=== PATIENT | female | born 1955 | race Caucasian/White ===

== ENCOUNTER 2017-07-23 19:51 | Emergency (ER) | payer MEDICARE, OTHER ==
[~2017-07-23] VITALS: Ht 160 cm; Wt 65.8 kg
[~2017-07-23 19:51] MED LIST: ST. JOHN'S WORT; ST. JOHN'S WORT1 GM
[2017-07-23 20:10] LABS: BASOPHILS ABSOLUTE AUTO 0.02 K/mm3 (0.00-0.23); BASOPHILS PERCENT AUTO 0 % (0-2); EOSINOPHILS ABSOLUTE AUTO 0.34 K/mm3 (0.00-0.68); EOSINOPHILS PERCENT AUTO 3 % (0-6); Hematocrit 35.3 % (33.0-51.0); Hemoglobin 11.5 g/dL (11.5-16.0); IMMATURE GRAN ABSOLUTE AUTO 0.03 K/mm3 (0.00-0.10); IMMATURE GRAN PERCENT AUTO 0 % (0-1); LYMPHOCYTES ABSOLUTE AUTO 2.02 K/mm3 (0.84-5.20); LYMPHOCYTES PERCENT AUTO 20 % (21-46); MONOCYTES ABSOLUTE AUTO 0.76 K/mm3 (0.16-1.47); MONOCYTES PERCENT AUTO 7 % (4-13); Mean Corpuscular HGB Conc 32.6 g/dL (31.5-36.5); Mean Corpuscular Volume 89 fL (80-100); Mean Platelet Volume 9.5 fL (9.1-12.4); NEUTROPHILS ABSOLUTE AUTO 7.11 K/mm3 (1.96-9.15); NEUTROPHILS PERCENT AUTO 69 % (41-73); Platelet Count 339 K/mm3 (150-400); RDW Coefficient Variation 13.8 % (11.7-14.2); RDW Standard Deviation 45.3 fL (35.1-46.3); Red Blood Cell Count 3.96 M/mm3 (3.80-5.20); White Blood Cell Count 10.28 K/mm3 (4.00-11.30)
[2017-07-23 20:21] LABS: International Normalized Ratio 1.08; Prothrombin Time Results 11.3 Sec (9.7-11.5)
[2017-07-23 20:31] LABS: Alanine Aminotransfer (ALT/SGP 26 U/L (12-78); Albumin, Blood 2.5 g/dL (3.4-5.0); Albumin/Globulin Ratio 0.5 (0.8-1.8); Alk Phos 96 U/L (50-136); Anion Gap 6 mmol/L (6-16); Aspartate Aminotrans (AST/SGOT 28 U/L (12-37); Bilirubin, Total 0.3 mg/dL (0.1-1.0); Blood Urea Nitrogen 13 mg/dL (8-24); Bun/Creatinine Ratio 22.6 (12.0-20.0); CO2, Blood 27 mmol/L (21-32); Calcium, Blood 9.1 mg/dL (8.5-10.1); Chloride, Blood 104 mmol/L (98-108); Creatinine, Blood 0.58 mg/dL (0.40-1.00); Ethanol (Alcohol), Blood, Med <3 mg/dL; Globulin, Blood 5.2 g/dL (2.2-4.0); Glomerular Filtration Rate >60 (60-); Glucose, Blood 126 mg/dL (70-99); Sodium, Blood 137 mmol/L (136-145); Total Protein, Blood 7.7 g/dL (6.4-8.2)
[2017-07-23] MEDS ORDERED: SENN187 PO (20:36)
[2017-07-23] MEDS ORDERED: ALBU90OI INH (20:36)
[2017-07-23] MEDS ORDERED: ATOR10 PO (20:37)
[2017-07-23] MEDS ORDERED: OXYC5 PO (20:37)
[2017-07-23] MEDS ORDERED: Milk Of Ma400 MG/5 M PO (20:37)
[2017-07-23] MEDS ORDERED: CENTRAVITES 501 EACH PO (20:38)
[2017-07-23] MEDS ORDERED: Lisinopril2.5 MG PO (20:38)
[2017-07-23] MEDS ORDERED: METF500 PO (20:38)
[2017-07-23 21:08] LABS: Source, Urine Clean Catch
[2017-07-23 21:10] LABS: Bilirubin, Urine Neg (Neg); Blood, Urine 1+ (Neg); Glucose Qualitative, Urine Neg (Neg); Ketones, Urine 1+ (Neg); Leukocyte Esterase, Urine Neg (Neg); Nitrite, Urine Neg (Neg); Protein, Urine Neg (Neg); Specific Gravity, Urine 1.025 (1.003-1.022); Urobilinogen, Urine NORM (Normal)
[2017-07-23 21:23] LABS: Appearance, Urine Clear (Clear); Color, Urine Yellow (P-Yellow); U Amphetamine Screen Not Detected; U Barbituate Screen Not Detected; U Benzodiazapine Screen Not Detected; U Cannabinoids Screen DETECTED; U Cocaine Screen Not Detected; U Methadone Screen Not Detected; U Methamphetamine Screen DETECTED; U Opiates Screen Not Detected; U Phencyclidine Screen Not Detected
[2017-07-23 21:24] LABS: U Buprenorphine Screen Not Detected; U Oxycodone Screen DETECTED; U Propoxyphene Screen Not Detected
[2017-07-23 21:25] LABS: Bacteria Few /hpf; Red Blood Cells, Urine 0-2 /hpf (0-2); Squamous Epithelial Cells Mod /hpf (Few); White Blood Cells, Urine 0-2 /hpf (0-5)
== END 2017-07-24 00:11 | disposition short-term general hospital (02) ==
LOC: ER 19:51
PROVIDERS: Emergency Medicine
DX: I63.9 Cerebral infarction, unspecified (principal); R47.01 Aphasia; R29.810 Facial weakness; R73.03 Prediabetes; Z86.19 Personal history of other infectious and parasitic diseases; Z90.710 Acquired absence of both cervix and uterus; Z87.891 Personal history of nicotine dependence; Z79.899 Other long term (current) drug therapy; Z79.84 Long term (current) use of oral hypoglycemic drugs
CPT/HCPCS: 36415; 51702; 70450; 70496; 70498; 71020; 80053; 81001; 82947; 85025; 85610; 85730; 93005; 93010; 99285; G0480; Q9967

== ENCOUNTER 2018-09-23 08:48 | Inpatient (IN) | payer MEDICARE, OTHER ==
[~2018-09-23] VITALS: Ht 157.5 cm; Wt 67.4 kg
[~2018-09-23 08:48] MED LIST changes: +ALBU90OI INH; +ATOR40TA PO; +CENTRAVITES 501 EACH PO; +Lisinopril2.5 MG PO; +METF500 PO; +Milk Of Ma400 MG/5 M PO; +OXYC5 PO; +SENN187 PO
[2018-09-23 09:10] LABS: Calcium, Ionized (POC) 1.02 mmol/L (1.10-1.46); Chloride (POC) 106 mmol/L (98-108); Creatinine (POC) 0.6 mg/dL (0.6-1.0); Glucose (ISTAT POC) 156 mg/dL (70-99); Potassium (POC) 4.5 mmol/L (3.5-5.5); Sodium (POC) 139 mmol/L (135-148); Total CO2 (POC) 21 mmol/L (21-32)
[2018-09-23 09:28] LABS: BASOPHILS ABSOLUTE AUTO 0.03 K/mm3 (0.00-0.23); BASOPHILS PERCENT AUTO 0 % (0-2); EOSINOPHILS ABSOLUTE AUTO 0.04 K/mm3 (0.00-0.68); EOSINOPHILS PERCENT AUTO 0 % (0-6); Hematocrit 45.9 % (33.0-51.0); Hemoglobin 14.9 g/dL (11.5-16.0); IMMATURE GRAN ABSOLUTE AUTO 0.04 K/mm3 (0.00-0.10); IMMATURE GRAN PERCENT AUTO 0 % (0-1); LYMPHOCYTES ABSOLUTE AUTO 2.39 K/mm3 (0.84-5.20); LYMPHOCYTES PERCENT AUTO 19 % (21-46); MONOCYTES ABSOLUTE AUTO 0.69 K/mm3 (0.16-1.47); MONOCYTES PERCENT AUTO 5 % (4-13); Mean Corpuscular HGB 30.6 pg (26.0-34.0); Mean Corpuscular HGB Conc 32.5 g/dL (31.5-36.5); Mean Corpuscular Volume 94 fL (80-100); Mean Platelet Volume 9.1 fL (9.1-12.4); NEUTROPHILS ABSOLUTE AUTO 9.72 K/mm3 (1.96-9.15); NEUTROPHILS PERCENT AUTO 75 % (41-73); Platelet Count 262 K/mm3 (150-400); RDW Standard Deviation 48.1 fL (35.1-46.3); Red Blood Cell Count 4.87 M/mm3 (3.80-5.20); White Blood Cell Count 12.91 K/mm3 (4.00-11.30)
[2018-09-23 09:52] LABS: International Normalized Ratio 1.03; Prothrombin Time Results 10.9 Sec (9.7-11.5)
[2018-09-23 09:55] LABS: Alanine Aminotransfer (ALT/SGP 36 U/L (12-78); Albumin/Globulin Ratio 0.7 (0.8-1.8); Alk Phos 114 U/L (50-136); Anion Gap 12 mmol/L (6-16); Aspartate Aminotrans (AST/SGOT 29 U/L (12-37); Bilirubin, Total 0.5 mg/dL (0.1-1.0); Blood Urea Nitrogen 13 mg/dL (8-24); Bun/Creatinine Ratio 19.4 (12.0-20.0); CO2, Blood 22 mmol/L (21-32); Calcium, Blood 9.7 mg/dL (8.5-10.1); Chloride, Blood 104 mmol/L (98-108); Creatinine, Blood 0.67 mg/dL (0.40-1.00); Globulin, Blood 5.4 g/dL (2.2-4.0); Glomerular Filtration Rate >60 (60-); Glucose, Blood 147 mg/dL (70-99); Potassium, Blood 4.5 mmol/L (3.5-5.5); Sodium, Blood 138 mmol/L (136-145); Total Protein, Blood 9.4 g/dL (6.4-8.2)
[2018-09-23] MEDS ORDERED: GABA100 PO (10:43)
[2018-09-23] MEDS ORDERED: ASPI81CH PO (10:44)
[2018-09-23] MEDS ORDERED: ESCI10 PO (10:44)
[2018-09-23] MEDS ORDERED: Advair Hfa 230-12 GM INH (10:44)
[2018-09-23] MEDS ORDERED: CLOP75 PO (10:45)
[2018-09-23] MEDS ORDERED: FOLI1 PO (12:01)
[2018-09-23] MEDS ORDERED: FLUT1DIS5 INH (12:02)
--- NOTE | 2018-09-23 18:45 | NUR ---
Initial Visit: Consult for Palliative Care received for advanced care planning for patient with cancer. Pt is looking around the room, she is non verbal. No s/s of distress. Reviewed with pt's granddaughter and sister. Granddaughter states that prior level of functioning was good: Pt was able to even climb the stairs with assistance until about a week to two weeks ago when the pt got considerably weaker. Granddaughter and sister are trying to make decisions, but before they do, they would like to talk to Dr. Brown. Booklets, Hard Choices for [place] [facility] and Considering Comfort Care given. They appear to be searching for clear and decisive answers to their questions. Plans are made to follow up with the family after they have had their discussion with Dr. Brown.
--- NOTE | 2018-09-23 19:24 | NUR ---
SHIFT SUMMARY NEW ADMIT FROM ED THIS AFTERNOON. PATIENT DENIES PAIN AND SHORTNESS OF BREATH. PATIENT MEDICATED X 1 FOR VOMITING. PALLIATIVE CARE SPOKE WITH FAMILY. CALUDIA YOUNG IS POA. FAMILY INFORMED IN ED THAT PER CT SCAN PATIENT HAS SEVERAL LESIONS THAT ARE LIKLEY METASTASIZED. CONSULT CALLED TO DR. ARNOLD ANSWERING SERVICE. REPORT GIVEN TO GALDINO MARTINEZ.
--- NOTE | 2018-09-24 03:56 | NUR ---
SHIFT SUMMARY PT ADMITTED FOR SEIZURE. FULL CODE. ADA DIET. SCDS. CBG AT AND HS. dR. Hernandez COMSULT CALLED DUE TO HISTORY OF LUNG CANCER WITH CORONER TRANSPORT TECHNICIAN METS. LOVENOX. HX OF CVA WITH R HEMIPLEGIA NOTED TO HAVE OCCURRED IN JUNE. RAUDEL TO R HAND. THE PT PRESENTED TO THE ED AFTER THE PTS GRANDDAUGHTER STATED THAT THE PT HAD TONIC-CLONIC SEIZURE ACTIVITY. THE PTS SISTER IS POA AND THE PRIMARY CARE PROVIDER BUT WAS ON A PLACE FROM [place] AT THE TIME OF TRANSPORT TO THE ED AND UNABLE TO BE CONTACTED. THE PT HAS A HISTORY OF LUNG CANCER FROM MAY OF 2017 FOR WHICH SHE UNDERWENT A LOBECTOMY. HOWEVER, IT APPEARS THAT THE CANCER HAS SPREAD OUTSIDE OF THE LUNGS. THE PTS HEAD CT SHOWS NEW METASTASIS THROUGHOUT THE SUPRATENTORIAL PARENCHYMAL WITH LARGE GEOGRAPHIC AREAS LIKELY EDEMA VS INFARCT. PER REPORT THE PT IS NON-VERBAL AT BASELINE BUT THE PT DID APPEAR TO BE ABLE TO ANSWER SOME QUESTIONS AND VERBALIZED SMALL WORKDS. THE PT HAS HAD VOMITING THIS NIGHT SEVERAL TIMES AND VOMITING PRIOR TO ARRIVAL. THE PT HAS APPEARED TO SLOW DOWN WITH THE VOMITTING RECENTLY AND APPEARS TO BE SLEEPING COMFORTABLY AT THIS TIME. NO APPARENT SIGNS OF ACUTE DISTRESS. IT DOES NOT APPEAR THAT PT IS ABLE TO MAKE NEEDS KNOWN. FREQUENT VISUAL CHECKS. CALL LIGHT IN REACH. WILL CONTINUE TO MONITOR.
[2018-09-24 04:53] LABS: BASOPHILS ABSOLUTE AUTO 0.01 K/mm3 (0.00-0.23); BASOPHILS PERCENT AUTO 0 % (0-2); EOSINOPHILS PERCENT AUTO 0 % (0-6); Hematocrit 43.7 % (33.0-51.0); Hemoglobin 14.2 g/dL (11.5-16.0); IMMATURE GRAN ABSOLUTE AUTO 0.03 K/mm3 (0.00-0.10); IMMATURE GRAN PERCENT AUTO 0 % (0-1); LYMPHOCYTES ABSOLUTE AUTO 1.17 K/mm3 (0.84-5.20); LYMPHOCYTES PERCENT AUTO 11 % (21-46); MONOCYTES ABSOLUTE AUTO 0.64 K/mm3 (0.16-1.47); MONOCYTES PERCENT AUTO 6 % (4-13); Mean Corpuscular HGB 30.4 pg (26.0-34.0); Mean Corpuscular HGB Conc 32.5 g/dL (31.5-36.5); Mean Corpuscular Volume 94 fL (80-100); Mean Platelet Volume 9.2 fL (9.1-12.4); NEUTROPHILS ABSOLUTE AUTO 8.79 K/mm3 (1.96-9.15); NEUTROPHILS PERCENT AUTO 83 % (41-73); Platelet Count 249 K/mm3 (150-400); RDW Coefficient Variation 13.9 % (11.7-14.2); RDW Standard Deviation 47.9 fL (35.1-46.3); Red Blood Cell Count 4.67 M/mm3 (3.80-5.20); White Blood Cell Count 10.64 K/mm3 (4.00-11.30)
[2018-09-24 05:09] LABS: Anion Gap 8 mmol/L (6-16); Blood Urea Nitrogen 12 mg/dL (8-24); Bun/Creatinine Ratio 18.5 (12.0-20.0); CO2, Blood 30 mmol/L (21-32); Calcium, Blood 9.8 mg/dL (8.5-10.1); Chloride, Blood 104 mmol/L (98-108); Creatinine, Blood 0.65 mg/dL (0.40-1.00); Glomerular Filtration Rate >60 (60-); Glucose, Blood 127 mg/dL (70-99); Potassium, Blood 3.8 mmol/L (3.5-5.5); Sodium, Blood 142 mmol/L (136-145)
--- NOTE | 2018-09-24 17:47 | NUR ---
SHIFT SUMMARY SLOW TO RESPOND WITH ANSWERS SOME QUESTIONS APPROPRIATELY. EATING AND DRINKING WELL. TAKES MEDS WITH PUDDING. TURN Q2. SEVERAL FRIENDS AND FAMILY MEMBERS TO VISIT TODAY. LUNG CA WITH METS TO BRAIN. AYANA ORTIZ RLE GROSS MOVEMENT. FAMILY DENIES PAIN FAMILY DENIES PT S/S OF DISCOMFORT. DR. ARNOLD SAW PT TODAY.
--- NOTE | 2018-09-25 04:38 | NUR ---
COMMUNITY SUPPORT SPECIALIST SUMMARY NO ACUTE CHANGES THIS SHIFT. PT AAOX2, PLEASANT AND COOPERATIVE. PT WAS UNSURE WHERE SHE WAS AND THOUGHT SHE MAY BE IN [place]. WHEN ASKED WHY SHE WAS AT THE HOSPITAL THE PT SHRUGGED HER SHOULDERS AND SAID "MY BLOOD PRESSURE?". PT CAN MAKE NEEDS KNOWN AND REQUIRES ASSISTANCE WITH REPOSITIONING. PT HAS NO USE OF RIGHT ARM AND IS UNABLE TO LIFT EITHER OF HER LEGS. PER PT'S DAUGHTER, PT WAS ABLE TO GET AROUND AT HOME WITH A FWW AND ASSISTANCE. PT HAS SLEPT WELL THROUGH MOST OF THE NIGHT IN NO APPARENT DISTRESS. TAKES MEDS WHOLE WITH CHOCOLATE PUDDING. VSS, WILL CONTINUE TO MONITOR.
--- NOTE | 2018-09-25 18:40 | NUR ---
SHIFT SUMMARY PATIENT PLEASANT. SWITCHED TO DNR TODAY. WILL ASSESS WITH THE GRANDDAUGHTER WHO IS POA TOMORROW ABOUT THE CHANGE TO COMFORT CARE. NO ACUTE CONCERNS TODAY.
--- NOTE | 2018-09-26 08:01 | NUR ---
*SHIFT SUMMARY* PATIENT ABLE TO ANSWER YES OR NO QUESTIONS. FAMILY AT BEDSIDE UNTIL ABOUT 2200. PATIENT IS A Q2H TURN. PATIENT IS INCONTINENT AND WEARING BRIEF. TAKES PILLS WHOLE. VITAL SIGNS STABLE. BED LOWERED AND LOCKED WITH CALL LIGHT IN REACH AND BED ALARM ON.
--- NOTE | 2018-09-26 11:28 | NUR ---
Pt visit this AM. Pt denies pain and dyspnea at this time. Family present during visit including Therese (daughter), Luli (granddaughter and POA), and family friend Sone. Engaged in therapeutic conversation about goals of care. Granddaughter Luli reports they have made a decision and would like the Pt to be placed on comfort care, home with hospice, and assistance with finding placement for Pt. Educated Pt and family on comfort care and hospice philosophy. Nelyughter requests that the Pt's vitals be recorded 1x daily and would like to keep her depression medication, and seizure medications. She also requests dexamethasone and comfort medications be added. Pt's nurse Sumi present during visit and is agreeable to plan. Spoke with Dr Mata and she is agreeable with plan. Plan is for Pt to be placed on comfort care, and social service referral will be placed for placement and hospice. Pt's nurse Sumi present when Dr Mata gave V/O for comfort care, comfort care orde set, D/C of maintenance medications, and to add dexamethasone to regimen and will place orders. Will remain available for symptom management.
--- NOTE | 2018-09-26 17:23 | NUR ---
SHIFT SUMMARY PATIENT MOVED TO COMFORT CARE THIS MORNING WITH GRANDDAUGHTER POA, DAUGHTER, AND PATIENT INVOLVED IN THE DECISION. WILL ASSESS FOR CHANGES AT THIS TIME. PATIENT HAS NO CONCERNS AT THIS TIME.
--- NOTE | 2018-09-27 04:57 | NUR ---
*SHIFT SUMMARY* PATIENT IS ALERT AND TALKS WITH STAFF. NO COMPLAINTS OF PAIN. PATIENT REPOSITIONED THROUGHOUT THE NIGHT. PILLS WHOLE WITH PUDDING. CALL LIGHT IN REACH, BED LOWERED AND LOCKED.
--- NOTE | 2018-09-27 15:38 | NUR ---
PATIENT RESTING IN BED. THIS RN ASSISTED WITH A BOOST, REPOSITION. PATIENT SPEAKING VERY QUIETLY ABLE TO MAKE HER NEEDS KNOWN. NO ACUTE ISSUES NOTED.
--- NOTE | 2018-09-27 15:39 | NUR ---
REPOSITIONED PATIENT TO PREPARE FOR LUNCH. NO ACUTE ISSUES NOTED.
--- NOTE | 2018-09-27 15:40 | NUR ---
PATIENT CURRENTLY ASLEEP APPEARS TO BE RESTING PEACEFULLY NO ACUTE ISSUES NOTED.
--- NOTE | 2018-09-27 15:40 | NUR ---
PATIENT CURRENTLY SLEEPING, AFTERNOON MEDICATION HELD DUE TO PATIENT BEING ASLEEP. APPEARS TO BE COMFORTABLE. NO ACUTE ISSUES NOTED.
--- NOTE | 2018-09-27 16:36 | NUR ---
THIS RN GOT PATIENT UP TO BED SIDE, FAMILY SITTING AT EOB WITH PATIENT. PATIENT VERY WEAK IN THE L LEG AND L ARM.
--- NOTE | 2018-09-27 18:40 | NUR ---
PATIENT SITTING UP AT BEDSIDE WITH FAMILY FRIEND. AFTER ABOUT 20 MINUTES PATIENT WAS READY TO LAY BACK DOWN. THIS RN WITH THE HELP OF A ORE MINER CHANGED PATIENTS ATTENDS, AND PROVIDED PATIENT WITH A LINEN CHANGE. REPOSITIONED PATIENT IN BED. NO ACUTE NEEDS NOTED. PATIENT COMFORTABLE. IN GOOD SPIRITS.
--- NOTE | 2018-09-28 06:27 | NUR ---
*SHIFT SUMMARY* PATIENT IS ALERT AND IN BED. NO COMPLAINTS OF PAIN. REPOSITIONED THROUGHOUT THE NIGHT. TALKS WITH STAFF. TAKES PILLS WHOLE IN PUDDING. NO NEW CHANGES IN CONDITION. BED LOWERED AND LOCKED. SPOKE WITH PATIENT ABOUT PRESSLEY CATHETER PLACEMENT FOR COMFORT PT STATES SHE WOULD LIKE TO TRY THIS. PLAN TO INSERT PRESSLEY. WILL REPORT TO DAYSHIFT. CALL LIGHT IN REACH, BED LOWERED AND LOCKED.
--- NOTE | 2018-09-28 07:39 | NUR ---
PATIENT HAS A NEW PRESSLEY, PATENT AND DRAINING YELLOW URINE. PRESSLEY PLACED FOR COMFORT.
--- NOTE | 2018-09-28 10:54 | NUR ---
PATIENT ATE ALL OF HER BREAKFAST. MEDS GIVEN IN PUDDING, ATE THE PUDDING AFTER MEDS GIVEN. CURRENTLY SLEEPING IN HER ROOM.
--- NOTE | 2018-09-28 15:39 | NUR ---
REPOSITIONED PATIENT, MADE COMFORTABLE. FLUFFED BEDDING. OFFERED FLUIDS. CURRENTLY RESTING IN BED.
--- NOTE | 2018-09-28 17:15 | NUR ---
Pt visit this afternoon. Pt reports 4/10 pain in her head but denies need for pain medications at this time. She denies dyspnea and anxiety. Pt reports no concerns at this time. Spoke with Pt's nurse Isabella and she reports no concerns at this time. Will remain available.
--- NOTE | 2018-09-28 17:52 | NUR ---
GRANDDAUGHTER AND GRANDSON IN AT BEDSIDE, BROUGHT PATIENT A COFFEE DRINK. PATIENT SMILING AND CONVERSING WITH FAMILY. PATIENT BROUGHT MEAL TRAY. ATTENDS CHANGED. REPOSITIONED FOR COMFORT. BOOSTED FOR DINNER MEAL.
--- NOTE | 2018-09-29 04:03 | NUR ---
SHIFT SUMMARY PATIENT IS ON COMFORT CARE. AXOX 3 AND BEDFAST. TAKES MEDICATION WHOLE WITH PUDDING. NO IV ACCESS. PRESSLEY PATENT AND DRAINING. DENIES PAIN, SOB, AND N/V. COOPERATIVE WITH CARE. CALL LIGHT IN REACH. BED IN LOWEST POSITION. WILL CONTINUE TO MONITOR UNTIL DAY SHIFT NURSE ASSUMES CARE.
--- NOTE | 2018-09-29 09:13 | NUR ---
NO COMPLAINTS OF PAIN. PT AT ALL OF ER BREAKFAST THIS MORNING.
--- NOTE | 2018-09-29 13:00 | NUR ---
PT IS IN RECLINER FOR LUNCH.
--- NOTE | 2018-09-29 15:53 | NUR ---
Met with Luli this afternoon in her room. She is awake, laying in bed watching TV. She has no complaints and denies any needs at present. No family is currently in her room. Reviewed chart and CM is working with family for discharge planning. PC will continue to follow for symptom managment.
--- NOTE | 2018-09-29 16:25 | NUR ---
PT COOPERATIVE WITH CARE. NO COMPLAINTS.
--- NOTE | 2018-09-29 16:26 | NUR ---
PT SLEEPING IN BED.
--- NOTE | 2018-09-29 16:27 | NUR ---
PT IS ALERT AND ORIENTED AND COOPERATIVE WITH CARE. NO COMPLAINTS OF PAIN TODAY. SHE GOT UP TO THE RECLINER FOR LUNCH TODAY AND STAYED THERE FOR A COUPLE HOURS BEFORE SHE WAS READY TO GET BACK IN BED. SHE GOT A BED BATH TODAY. SHE IS NOW IN BED SLEEPING. SHE HAD A GOOD APPETITE, FINISHING BOTH MEALS. NO ACUTE CHANGES TODAY. WILL CONTINUE TO MONITOR.
--- NOTE | 2018-09-29 18:35 | NUR ---
Mrs. Anthony is a dulce, soft-spoken woman. She tells me she is at peace with nearing end-of-life and knows she is going to heaven. She plans on returning home to be cared for by her two granddaughters. No fears or regrets expressed. She allowed me to prayer for her at bedside. I will remain available.
--- NOTE | 2018-09-29 19:21 | NUR ---
PT HAD GRANDDAUGHTERS VISIT HER EARLIER.
--- NOTE | 2018-09-29 19:52 | NUR ---
VSS, AFEBRILE, A/O, CALM, PLEASANT, NO COMPLAINTS AT THIS TIME. WILL CONTINUE TO MONITOR.
--- NOTE | 2018-09-30 05:21 | NUR ---
VSS, AFEBRILE, A/O, PLEASANT AND COOPERATIVE. PT SLEPT WELL OVERNOC. NO COMPLAINTS. COMFORT CARE. WILL CONTINUE TO MONITOR.
--- NOTE | 2018-09-30 05:22 | NUR ---
PT WAS ASSESSED REGULARLY DURING COMPUTER DOWNTIME ON PAPER CHART. PT HAS SLEPT WELL ALL NOC. NO COMPLAINTS. PERSONAL CARE DIRECTED BY PT AND AT HER REQUEST ONLY. WILL CONTINUE TO MONITOR.
--- NOTE | 2018-09-30 07:28 | NUR ---
PT IN BED, SLEEPING.
--- NOTE | 2018-09-30 09:25 | NUR ---
PT'S DAUGHTER IN HOSPITAL ROOM. VISITING.
--- NOTE | 2018-09-30 13:08 | NUR ---
Pt resting in a recliner chair upon arrival. She is pleasantly confused. She reports 4/10 pain on the right side of her head. She denies anxiety and dyspnea at this time. Pt's daughter present during visit. Pt and daughter report no other cocnerns at this time. Will report th Pt's nurse of her pain. Will remain available.
--- NOTE | 2018-09-30 17:04 | NUR ---
PT'S DAUGHTER LEFT. THE PT IS SLEEPING IN BED. NO COMPLAINTS.
--- NOTE | 2018-09-30 17:19 | NUR ---
PT IS ALERT AND ORIENTED AND COOPERATIVE WITH CARE. SHE CALLS APPROPRIATELY. HE HAS A PRESSLEY IN PLACE, DRAINING. ATTENDS IN PLACE FOR INCONTINENT BOWEL MOVEMENT. 2 PERSON TRANSFER WITH GAIT BELT. UP TO CHAIR FOR MEALS. SHE COMPLAINTED OF A HEADACHE EARLIER, TREATED PER EMAR. VISITORS IN AND OUT THROUGHOUT THE DAY. COMFORT CARE TRAY RESTOCKED TODAY. NO ACUTE CHANGES. WILL CONTINUE TO MONITOR.
--- NOTE | 2018-10-01 05:41 | NUR ---
SHIFT SUMMARY PT SLEPT WELL DURING THE NIGHT. HAS REQUESTED ROXANOL DURING THE NIGHT FOR H/A, STATES IT WORKS SWELL FOR HER. NO ACUTE EVENTS NOTED DURING THE NIGHT. WILL CONTINUE TO MONITOR.
--- NOTE | 2018-10-01 08:01 | NUR ---
ASSUMED CARE OF PT- BEDSIDE REPORT COMPLETE WITH NIGHT MICHELLE PHILIPPE. PT SLEPT THROUGH BEDSIDE REPORT AND INITIAL MORNING ASSESSMENT, NO S&S OF DISTRESS NOTED AT THIS TIME WILL CONTINUE TO MONITOR.
--- NOTE | 2018-10-01 17:49 | NUR ---
pt resting affect good having some increased pain to right abdomen. assisted nursing with pain management and theraputic visit.
--- NOTE | 2018-10-01 19:34 | NUR ---
SHIFT SUMMARY- PT HAS HAD FREQUENT REQUESTS FOR PAIN MANAGEMENT MEDS. PAIN SEEMS WELL MANAGED WITH THE DOSE OF 5MG ROXANOL. PT C/O HEADACHE AND RIGHT LEG PAIN; SHE DOES NOT STATE THIS IF PAOPLE ASK ABOUT PAIN, ONLY IF STAFF ASK IF HER HEAD OR LEG ARE HURTING. BEDSIDE REPORT COMPLETE WITH NIGHT RN ROBERT, PT STATED PAIN 1/10 AT THE TIME OF REPORT.
--- NOTE | 2018-10-02 03:32 | NUR ---
SHIFT SUMMARY PATIENT IS ON COMFORT CARE. AXO X3 AND TWO ASSIST TO BSC. NO IV ACCESS. PRESSLEY PATENT AND DRAINING. TAKES MEDICATION WHOLE WITH APPLE SAUCE. DENIES PAIN, SOB, AND N/V. ATTENDS IN PLACE. NO VISITORS PRESENT THIS SHIFT. COOPERATIVE WITH CARE. CALL LIGHT IN REACH. BED IN LOWEST POSITION. WILL CONTINUE TO MONITOR UNTIL DAY SHIFT NURSE ASSUMES CARE.
--- NOTE | 2018-10-02 04:09 | NUR ---
PATIENT REPORTS STEWART AND LEFT LEG PAIN. ROXANOL SL 5 MG GIVEN PER EMAR. CALL LIGHT IN REACH. WILL CONTINUE TO MONITOR.
--- NOTE | 2018-10-02 17:01 | NUR ---
pt sitting up visiting with family and comfortable affect bright
--- NOTE | 2018-10-02 18:35 | NUR ---
SHIFT SUMMARY- PT IS ALERT AND ORIENTED TO SELF AND FAMILY, SHE REMEMBERS PEOPLE SHE HAS SEEN RECENTLY WELL. MEDICATED MULTIPLE TIMES T/O THE SHIFT FOR PAIN. PT OFTEN USES THE FACE SCALE ON THE WHITE BOARD TO DETERMINE HER PAIN LEVEL. SHE IS ABLE TO ASK FOR PAIN MEDICATION BUT OFTEN DENIES PAIN, IF STAFF ASK IF SOMETHING IS HURTING SHE WILL TELL THEM ABOUT THE PAIN IN HER HEAD OR HER RIGHT LEG. PT HAS THE CALL LIGHT BUT DOES NOT CALL FOR STAFF ASSIST, SHE RECIEVED A FULL BED BATH TODAY. WENDIE IS PATENT AND DRAINING.
--- NOTE | 2018-10-03 04:22 | NUR ---
SHIFT SUMMARY PATIENT IS ON COMFORT CARE. FAMILY PRESENT AT SHIFT CHANGE. PATIENT AXO X3 AND TWO ASSIST TO BSC. DENIES PAIN, SOB, AND N/V. TAKES MEDICATION WHOLE WITH APPLE SAUCE ONE AT A TIME. ATTENDS IN PLACE. COOPERATIVE WITH CARE. CALL LIGHT IN REACH. BED IN LOWEST POSITION. WILL CONTINUE TO MONITOR UNTIL DAY SHIFT NURSE ASSUMES CARE.
--- NOTE | 2018-10-03 05:58 | NUR ---
PATIENT REPORTS MORE INTENSE STEWART AND 10 MG ROXANOL GIVEN PER EMAR. CALL LIGHT IN REACH. WILL CONTINUE TO MONITOR.
--- NOTE | 2018-10-03 07:33 | NUR ---
ASSUMED CARE OF PT- PT ALERT AND ORIENTED THIS MORNING. WOKE TO STAFF VOICES AND PARTICIPATED IN BEDSIDE REPORT. FAMILY NOT CURRENTLY AT THE BEDSIDE. DENIES PAIN AT THIS TIME, NO S&S OF DISTRESS.
--- NOTE | 2018-10-03 11:32 | NUR ---
PAL CARE COMFORT CARE VISIT. Current update obtained from RN and EMR. notes plan for dc with hospice tomorrow. Family states that pt normally resides with Luli duvall, who is her medical POA but that she cannot return there. Viri present now, lives out of area and states she will be returning to [place] today. I gave her a list of [facility], [facility], [facility] at her request. Also left voice mail for CM coordinator for early Thursday am visit to connect with family re: dc planning. I reviewed CM notes from last week and see that CM working on AP[employer] application/medicaid with family for resources for facility. Pt is oriented to person, place and situation. She denies STEWART, discomfort of any sort but appears worried with inquiries about her symptoms. Her daughter is providing personal care, sitting on bed with pt, giving her a manicure. Family and pt enjoying each others' company. Another visitor in chair beside. Family and pt feel her s/s are well managed. Reviewed s/s management and medications being given with RN and she also feels pt's s/s well managed with current rx regime and prn Roxanol. RN reports that pt's mentation/memory is impaired at baseline. Pal care to follow for s/s management and support to pt/family.
--- NOTE | 2018-10-03 18:30 | NUR ---
SHIFT SUMMARY- PT HAS HAD NO ACUTE CHANGES T/O THE SHIFT. SHE HAS HAD VISITORS AT THE BEDSIDE ALL DAY, THEY HAVE GONE FROM THE ROOM AT THIS TIME. PT REMAINS IN GOOD SPIRITS DESPITE HER Dx. SHE HAS CONVEYED TO FAMILY SHE IS AWARE OF WHAT IS HAPPENING, BUT SHE WANTS TO BE WITH THEM. PT HAS HAD SOME PAIN TODAY BUT REQUIRED LESS MEDICATION.
--- NOTE | 2018-10-04 01:41 | NUR ---
PATIENT HAS REPORTED STEWART X 3 THIS SHIFT SO FAR AND ONLY X 1 ALL OF LAST NOCX SHIFT. ROXANOL GIVEN FOR STEWART PER EMAR. PATIENT REPORTS IT HELPS RELIEVE THE STEWART/ CALL LIGHT IN REACH.
--- NOTE | 2018-10-04 03:31 | NUR ---
SHIFT SUMMARY PATIENT IS ON COMFORT CARE. PATIENT REPORTS INCREASE IN FREQUENCY OF HEADACHES. ROXANOL GIVEN PER EMAR X THREE, 5-10 MG SL. PATIENT AXO X3 AND COOPERATIVE WITH CARE. ABLE TO LET STAFF KNOW HER NEEDS WHEN ASKED. TAKES MEDICATION WHOLE X 1 EACH IN APPLE SAUCE. ATTENDS IN PLACE. NO FAMILY PRESENT. CALL LIGHT IN REACH. BED IN LOWEST POSITION. WILL CONTINUE TO MONITOR UNTIL DAY SHIFT NURSE ASSUMES CARE.
--- NOTE | 2018-10-04 09:30 | NUR ---
PT PLEASANT COOP ALELRT TO SELF AND SITUATION. IS COMFORT CARE. STATES SOME PAIN IN ABD MOSTLY RT SIDE. WILL MEDICATE PER EMAR. H/R REG, NO TELE. LUNGS CLEAR, RESP EASY, UNLABORED. ON R/A. BT X4 PRESSLEY CATH DRAINING YELLOW FLUID. BED IN LOW POSITOIN, CALL LITE IN REACH, CALLS APPROP
--- NOTE | 2018-10-04 14:26 | NUR ---
ZAY, [facility] CALLED TO CHECK ON PT STATUS AND CURRENT MOBILITY
--- NOTE | 2018-10-04 17:40 | NUR ---
PT PLEASANT TODAY. MEDICATED FOR PAIN THIS AM. HAD LOOSE LARGE STOOL THIS KAITY. CLEANED. PT COOP IN TURNING AND ROLLING/. NO OTHER CONCERNS AT THIS TIME. BE IN LOW POSITION, CALL LITE IN REACH. CALLS APROP
--- NOTE | 2018-10-04 20:12 | NUR ---
REPOSITIONED PT AND BRIEF CHANGED. XL LIQUID BOWEL MOVEMENT. CATH CARE PROVIDED
--- NOTE | 2018-10-05 04:23 | NUR ---
REPOSITIONED PT IN BED. ATTENDS CHANGED. CATH CARE PROVIDED.
--- NOTE | 2018-10-05 05:31 | NUR ---
*SHIFT SUMMARY* PATIENT IS ALERT AND TALKS WITH STAFF. PATIENT USES CALL LIGHT AT TIMES. PT DID COMPLAIN OF PAIN DURING SHIFT AND WAS MEDICATED. PATIENT HAD 3 VERY LARGE BOWEL MOVEMENTS DURING SHIFT. SKIN IS C/D/I. NO REDNESS NOTED. CATHETER CARE PROVIDED, URINE DRAINING WELL.
--- NOTE | 2018-10-05 07:16 | NUR ---
repositioned pt and changed brief. pt had small BM. Catheter care provided.
--- NOTE | 2018-10-05 08:25 | NUR ---
PT SITTING IN BED FOR BREAKFAST. NO COMPLAINTS OF PAIN.
--- NOTE | 2018-10-05 16:23 | NUR ---
PT ALSLEEP IN BED. REPOSITIONED. ATTENDS CHECKED.
--- NOTE | 2018-10-05 16:35 | NUR ---
PT IS ALERT AND ORIENTED AND COOPERATIVE WITH CARE. COMFORT CARE ASSESSMENTS Q2H. REPOSTIONING Q2H. ATTENDS CHECKED AND CHANGED PRN. BREAKFAST HOSTESS REPORTED TWO LARGE LIQUID BM'S THIS SHIFT. PT HAS BEEN IN BED ALL DAY, REFUSING TO GET INTO CHAIR. SHE IS ON RA. NO ACUTE CHANGES THIS SHIFT, WILL CONTINUE TO MONITOR.
--- NOTE | 2018-10-05 17:55 | NUR ---
COMFORT CARE VISIT AND CASE CONFERENCE WITH RN. RN REPORTS PT HAS NOT WANTED TO GET UP OR OUT OF BED TODAY LIKE SHE DID LAST WEEK. SHE ALSO STATED PT HAS HAD SOME LOOSE STOOLS. FAMILY MEMBERS HAD BEEN IN TO VISIT PT EARLIER. RN ASKED WHAT DC PLAN WAS FOR PT AND I AM NOT FINDING NOTE/CONTACT WITH CM. PT IS CURRENTLY SOUND ASLEEP. I DID NOT DISTURB HER. RN REPORTS S/S WELL MANAGED AT PRESENT. WILL F/U WITH CM IN AM TO REQUEST UPDATE OF DC PLANNING WITH FAMILY. VM LEFT FOR CM DEPT THIS KAITY.
--- NOTE | 2018-10-06 04:37 | NUR ---
SHIFT SUMMARY PT REPORTED HEADACHE EARLY IN SHIFT. MEDICATED W/ 10 MG ROXANOL. NO FURTHER REPORTS OF HEADACHE SO FAR THIS SHIFT. PT SLEPT OFF AND ON WHEN NOT BEING WOKEN FOR TURNS OR CHANGES. PT INCONTINENT OF STOOL. LOOSE STOOL THROUGHOUT THE NIGHT. PRESSLEY CATHETER IN PLACE DRAINING DARK YELLOW URINE. PT ANSWERS QUESTIONS APPROPRIATELY. APPEARS A LITTLE MENTALLY SLOW. OTHERWISE NO ACUTE CHANGES. PT RESTING IN BED AT THIS TIME. WILL CONTINUE TO MONITOR AND REPORT TO DAY RN.
--- NOTE | 2018-10-06 11:38 | NUR ---
COMFORT CARE PAL CARE VISIT PT SLEEPING UPON ENTERING ROOM BUT WOKE EASILY. SHE DENIES HURTING, PAIN, STEWART OR SORE THROAT. SHE WHISPERS WHEN TALKING. SHE IS VERY CALM, PLEASANT, HAPPY TO HAVE HER FACE WASHED AND BE REPOSITIONED. I DID NOT OBSERVE ANY NONVERBAL INDICATORS OF PAIN, ANXIETY OR DISTRESS. RN REPORTS LOOSE STOOLS FOR COUPLE OF DAYS AND PT'S GROWING RELUCTANCE TO BE OOB OR GET UP FOR MEALS. ORDER OBTAINED FOR IMMODIUM PO PRN. ASSIST WITH DRINK OF WATER OFFERED INITIALLY AND PT DECLINED BUT WHEN I ASKED PT IF THERE WAS ANYTHING THAT WOULD MAKE HER HAPPY OR FEEL GOOD SHE SAID "A DRINK OF WATER". AFTER WATER GIVEN SHE ALSO SAID SHE WOULD LIKE SOME APPLE JUICE ON ICE, WHICH WAS PROVIDED. PT GIVEN CALL LIGHT AND INSTRUCTIONS ON CALLING FOR HELP BEFORE LEAVING.
--- NOTE | 2018-10-06 15:57 | NUR ---
PATIENTS ATTENDS WERE CHECKED AND WERE CLEAN AND DRY.
--- NOTE | 2018-10-06 17:28 | NUR ---
PT IS ALERT AND ORIENTED AND COOPERATIVE WITH CARE. SHE HAS A PRESSLEY IN PLACE, DRAINING MAGGI URINE. INCONTINENT OF BOWELS, ATTENDS IN PLACE. COMPLAINTS OF PAIN, HEADACHE AND RIGHT LEG PAIN. PAIN TREATED PER EMAR. NO ACUTE CHANGES THIS SHIFT, WILL CONTINUE TO MONITOR.
--- NOTE | 2018-10-07 04:55 | NUR ---
SHIFT SUMMARY PT HAS SLEPT WELL T/O SHIFT. PT HAD SOME DISCOMFORT AND TX PER EMAR. PT RESPONDED WELL AND FELL ASLEEP SHORTLY AFTER. PT HAD ONE LOOSE BM NOTED. CURRENTLY PT IS SLEEPING AND BREATHING EASY. CALL LIGHT IN REACH.
--- NOTE | 2018-10-07 11:17 | NUR ---
Met with Luli and her daughter in her room this morning. Luli is awake and watching TV. She speaks with a soft voice and has no complaints or requests. Her daughter has questions about the medicaid approval. Daughter reports that she spoke with [email or web address] who states that medicaid was approved. Spoke with Dasia Urrutia who reports that medicaid was approved and she will speak with pt's daughter about setting up a discharge plan with hospice services in a [facility].
--- NOTE | 2018-10-07 19:11 | NUR ---
SHIFT SUMMARY NO ACUTE CHANGES THIS SHIFT. MEDICATED FOR PAIN X2 THIS SHIFT. NO COMPLAINTS OF NAUSEA. LOOSE STOOL X1 THIS SHIFT. IMMODIUM GIVEN AND HAS NOT HAD LOOSE STILL. WAITING FOR PLACEMENT AT [facility]. PT RESTING QUIETLY. REPORT GIVEN TO GALDINO MARTINEZ.
--- NOTE | 2018-10-08 07:31 | NUR ---
SHIFT SUMMARY PT COMFORT MAINTAINED WELL AND PT WAS ABLE TO SLEEP T/O SHIFT. PT HAD NO COMPLAINTS OTHER THAN SOME DISCOMFORT. PT CURRENTLY SLEEPING AND BREATHING EASY. CALL LIGHT IN REACH.
--- NOTE | 2018-10-08 15:00 | NUR ---
Met with pt in her room this afternoon. She is awake and watching TV. She reports some diarrha today for which she tells me she recevied some immodium. She speaks with a soft voice. She has no complaints and no requests. CM is working with hospice for placement options.
--- NOTE | 2018-10-08 18:01 | NUR ---
SHIFT SUMMARY PATIENT STILL ON COMFORT CARE. HAMILTON SEXTON TO SEE THE PATIENT TOMORROW AFTERNOON AND ASSESS FOR DISCHARGE ON THURSDAY. PATIENT REPORTS ABDOMINAL PAIN TODAY AND HAS DIARRHEA. RECTAL TUBE ORDERED.
--- NOTE | 2018-10-09 06:23 | NUR ---
SHIFT SUMMARY PT ON COMFORT CARE & AWAKE ON/OFF T/O NIGHT. AOX3, FOLLOWS DIRECTIONS & ANSWERS QUESTIONS APPROPRIATELY. DENIES N/V OR SOB. REPORTS 9/10 PAIN IN RIGHT SIDE/ABD, MEDICATED W/10MG ROXANOL 2X PER ORDERS. RECTAL TUBE PLACED EARLIER IN SHIFT DUE TO PT HAVING CONTINUOUS LOOSE BMS & IS PATENT & DRAINING. PRESSLEY IS PATENT & DRAINING. PT REPOSITIONED & CHANGED PRN. CALL LIGHT IS IN REACH & I WILL CONT TO MONITOR PT.
--- NOTE | 2018-10-09 18:58 | NUR ---
SHIFT SUMMARY PATIENT PLEASANT. STILL ON COMFORT CARE. NO ACUTE CONCERNS AT THIS TIME. SHE IS POSSIBLE DISCHARGE TO [facility]. PATIENT IS COMFORTABLE AT THIS TIME.
--- NOTE | 2018-10-10 06:30 | NUR ---
SHIFT SUMMARY PT SLEPT SOUNDLY T/O NIGHT. AOX3, SLOW TO RESPOND TO QUESTIONS & FOLLOWS DIRECTIONS. DENIES SOB OR N/V. REPORTS 10/10 PAIN GENERALIZED ALLOVER BODY, MEDICATED 2X W/20MG ROXANOL PER ORDERS. PRESSLEY IS IN PLACE & WAS LEAKING THIS AM SO IT WAS FLUSHED/IRRIGATED, WILL NOTIFY ONCOMING RN. RECTAL TUBE CAM OUT THIS AM & WAS REPLACED & IS CURRENTLY PATENT & DRAINING. CALL LIGHT IS IN REACH & I WILL CONT TO MONITOR PT.
[2018-10-10 09:11] LABS: Source, Urine Catheter
--- NOTE | 2018-10-10 09:11 | NUR ---
PT LYING IN BED THIS AM WITHOUT ANY COMPLAINTS. RECTAL TUBE IN PLACE AND DRAINING LIQUID STOOL. CATHETER IN PLACE BUT DOES NOT APPEAR TO BE DRAINING, ATTEMPTED TO IRRIGATE AND COULD NOT DUE TO BEING CLOGGED. PRESSLEY TAKEN OUT AND NEW 14 FR PLACED, PT TOLERATED WELL. PT SITTING UP EATING BREAKFAST AT THIS TIME.
--- NOTE | 2018-10-10 09:20 | NUR ---
DR ALMONTE IN TO SEE PT.
[2018-10-10 09:31] LABS: Bilirubin, Urine Neg (Neg); Blood, Urine 1+ (Neg); Glucose Qualitative, Urine Neg (Neg); Ketones, Urine Neg (Neg); Leukocyte Esterase, Urine 1+ (Neg); Nitrite, Urine Pos (Neg); Protein, Urine 2+ (Neg); Urobilinogen, Urine NORM (Normal)
--- NOTE | 2018-10-10 10:47 | NUR ---
BED BATH/LINEN CHANGE/REPOSITION
[2018-10-10 10:52] LABS: Appearance, Urine Hazy (Clear); Bacteria Mod /hpf; Color, Urine Yellow (P-Yellow); Red Blood Cells, Urine 0-2 /hpf (0-2); Squamous Epithelial Cells Not Seen /hpf (Few)
--- NOTE | 2018-10-10 12:56 | NUR ---
REPORT GIVEN TO MICHELLE AGEE. CYNDIE TO ASSUME CARE OF PT.
--- NOTE | 2018-10-10 15:31 | NUR ---
TOOK OVER CARE OF THE PATIENT FROM INGRID MARTINEZ. PATIENT AND FAMILY AWARE. AT THIS TIME THE PATIENT IS COMFORTABLE. NO ACUTE CONCERNS.
--- NOTE | 2018-10-10 17:32 | NUR ---
SHIFT SUMMARY PATIENT STILL ON COMFORT CARE. NO ACUTE CONCERNS FROM THE PATIENT OR THE FAMILY AT THIS TIME.
--- NOTE | 2018-10-10 19:01 | NUR ---
PATIENT IS CURRENTLY SLEEPING. HANDING OFF REPORT TO DERICK MARTINEZ FOR THE JUNIOR PROJECT MANAGER.
--- NOTE | 2018-10-10 19:09 | NUR ---
Pt appears to be resting comfortably today. No s/s of distress.
--- NOTE | 2018-10-11 07:06 | NUR ---
SHIFT SUMMARY PT ON COMFORT CARE, HAS BEEN SLEEPING SOUNDLY T/O NIGHT. NO ACUTE CHANGES THIS SHIFT. DENIES N/V OR SOB. REPORTED 10/10 PAIN 1X & WAS MEDICATED W/20 MG ROXANOL PER ORDERS. PRESSLEY & RECTAL TUBE ARE BOTH PATENT & DRAINING. PT TURNED & REPOSITIONED PRN. CALL LIGHT IS IN REACH.
[2018-10-11] MEDS ORDERED: MORP20L SL (11:48)
[2018-10-11] MEDS ORDERED: Tylenol325 MG PO (11:49)
[2018-10-11] MEDS ORDERED: Transderm-Scop1 EACH TD (11:52)
[2018-10-11] MEDS ORDERED: ATIVAN4 MG/1 ML IV (11:55)
[2018-10-11] MEDS ORDERED: LEVE500 PO (12:01)
--- NOTE | 2018-10-11 12:26 | NUR ---
1205 PT DISCHARGED TO [facility] WITH HOSPICE SERVICES VIA W/C TRANSPORT. PRESSLEY CATHETER AND RECTAL TUBE IN PLACE AT TIME OF TRANSFER. RECTAL TUBE BAG CHANGED THIS AM WITH 700ML OF LIQUID BROWN STOOL. TWO NEW BAGS FOR RECTAL TUBE SENT WITH PT, HOSPICE NURSE UPDATED ON PT'S STATUS PRIOR TO D/C AT HIS TIME OF INITIAL ASSESSMENT IN HOSPITAL. PT REQUIRED TWO DOSES OF ROXONOL THIS SHIFT FOR PAIN TO R SIDE AND GENERALIZED. PT REPORTED ADEQUATE PAIN CONTROL. NO N/V. POOR PO INTAKE, PT SLEPT MOST OF THE AM. [facility] NOTIFIED OF TIME OF D/C. NO OTHER CHANGES.
== END 2018-10-11 12:39 | DRG 101 ==
LOC: ER 08:48 → ERHOLD 08:49 → MEDS 08:49 → ENPENDDIS 09-30 09:45 → EDPENDDIS 10-11 10:15 → EDPENDDISDT 10-11 10:15 → EDPENDDISTM 10-11 10:15 → MEDS 10-11 12:39
PROVIDERS: Emergency Medicine; Hospitalist; ADMIT Hospitalist
DX: G40.109 Localization-related (focal) (partial) symptomatic epilepsy and epileptic syndromes with simple partial seizures, not intractable, without status epilepticus (principal); C79.31 Secondary malignant neoplasm of brain; Z85.118 Personal history of other malignant neoplasm of bronchus and lung; E11.9 Type 2 diabetes mellitus without complications; E78.5 Hyperlipidemia, unspecified; Z86.73 Personal history of transient ischemic attack (TIA), and cerebral infarction without residual deficits; Z79.01 Long term (current) use of anticoagulants; Z87.891 Personal history of nicotine dependence
CPT/HCPCS: 36415; 70450; 80047; 80048; 80053; 81001; 82947; 85014; 85025; 85610; 93005; 93010; 94640; 94760; 96365; 96372; 96375; 99285-25; G0378; J1100; J1650; J1953; J2060; J2405; J7120